=== PATIENT | male | born 1990 ===

== ENCOUNTER 2017-05-10 18:18 | Emergency (ER) | payer OTHER ==
[2017-05-10 18:26] VITALS: BMI 30.3
[2017-05-10 18:28] VITALS: TEMP 98.3
[2017-05-10 19:08] LABS: URINE BILIRUBIN NEGATIVE (NEGATIVE); URINE BLOOD NEGATIVE (NEGATIVE); URINE GLUCOSE (UA) NEGATIVE (NEGATIVE); URINE KETONE NEGATIVE (NEGATIVE); URINE LEUKOCYTE ESTERASE NEGATIVE Leu/uL (NEGATIVE); URINE PROTEIN TRACE mg/dL (<30 mg/dL)
[2017-05-10 19:16] LABS: URINE APPEARANCE CLEAR (CLEAR); URINE COLOR YELLOW (YELLOW)
[2017-05-10 19:22] LABS: URINE BACTERIA FEW (NEG); URINE RBC 0 - 2 /hpf (0-2); URINE WBC 0 - 2 /hpf (0-6)
--- NOTE | 2017-05-10 20:08 | ED PDOC ---
Arrival/HPI - General Chief Complaint: Flu-like Symptoms Time Seen by Provider: 05/10/17 18:29 Historian: Patient - History of Present Illness Narrative History of Present Illness (Text): 05/10/17 20:05 27yo male with no PMhx who present with complaint of lower back pain and diarrhea. Notes history of similar back pain in the past. states pain is with moment. He states his pain usually resolved with OTC analgesic but not today. He have not seen a Doctor for this pain. He also reports 2episodes of diarrhea today. Denies abdominal pain, nausea, vomiting, urinary symptoms, hematuria, hematochezia, hematemesis, tearing/ripping upper back pain, urinary/fecal incontinences, saddle anesthesia, any other complaint. Past Medical History - Provider Review Nursing Documentation Reviewed: Yes - Infectious Disease Hx of Infectious Diseases: None - Psychiatric Hx Substance Use: No - Anesthesia Hx Anesthesia: No Family/Social History - Physician Review Nursing Documentation Reviewed: Yes Family/Social History: Unknown Family HX Smoking Status: Never Smoked Hx Alcohol Use: No Hx Substance Use: No Allergies/Home Meds Allergies/Adverse Reactions: Allergies No Known Allergies Allergy (Verified 05/10/17 18:26) Review of Systems - Physician Review All systems were reviewed & negative as marked: Yes - Review of Systems Constitutional: Normal Eyes: Normal ENT: Normal Respiratory: Normal Cardiovascular: Normal Gastrointestinal: Diarrhea. absent: Abdominal Pain, Constipation, Nausea, Vomiting, Hematochezia, Hematemesis Genitourinary Male: Normal Musculoskeletal: Back Pain Skin: Normal Neurological: Normal Endocrine: Normal Hemo/Lymphatic: Normal Psychiatric: Normal Physical Exam Vital Signs Reviewed: Yes Vital Signs Temp Pulse Resp BP Pulse Ox 05/10/17 18:26 98.3 F 130 H 17 127/82 98 Temperature: Afebrile Blood Pressure: Normal Pulse: Tachycardic Respiratory Rate: Normal Appearance: Positive for: Well-Appearing, Non-Toxic, Comfortable Pain Distress: None Mental Status: Positive for: Alert and Oriented X 3 - Systems Exam Head: Present: Atraumatic, Normocephalic Pupils: Present: PERRL Extroacular Muscles: Present: EOMI Conjunctiva: Present: Normal Mouth: Present: Moist Mucous Membranes Neck: Present: Normal Range of Motion Respiratory/Chest: Present: Clear to Auscultation, Good Air Exchange. No: Respiratory Distress, Accessory Muscle Use Cardiovascular: Present: Regular Rate and Rhythm, Normal S1, S2. No: Murmurs Abdomen: Present: Normal Bowel Sounds. No: Tenderness, Distention, Peritoneal Signs, Rebound, Guarding, McBurney's Point Tender, Mass/Organomegaly Back: Present: Midline Tenderness. No: Paraspinal Tenderness, Pain with Leg Raise Upper Extremity: Present: Normal Inspection. No: Cyanosis, Edema Lower Extremity: Present: Normal Inspection. No: Edema Neurological: Present: GCS=15, CN II-XII Intact, Speech Normal Skin: Present: Warm, Dry, Normal Color. No: Rashes Psychiatric: Present: Alert, Oriented x 3, Normal Insight, Normal Concentration Medical Decision Making ED Course and Treatment: 05/10/17 20:15 PT presented for stated history. On re evaluation he notes that his pain improved in ED with medication. He as ambulatory with steady gait. LS no acute fracture noted He noted 2episodes of diarrhea in Ed. He will not be treated at this time, to avoid dumping syndrome. He will be DC with a rx of loperamide to take at home tomorrow if diarrhea persist. He had no episode of diarrhea here in ED. Referred to his PMD. - Lab Interpretations Lab Results: Lab Results 05/10/17 18:55: Urine Color Yellow, Urine Appearance Clear, Urine pH 7.0, Ur Specific [place] 1.010, Urine Protein Trace H, Urine Glucose (UA) Negative, Urine Ketones Negative, Urine Blood Negative, Urine Nitrate Negative, Urine Bilirubin Negative, Urine Urobilinogen 2.0 H, Ur Leukocyte Esterase Negative, Urine RBC 0 - 2, Urine WBC 0 - 2, Ur Epithelial Cells None, Urine Bacteria Few - RAD Interpretation Radiology Orders: 05/10/17 18:35 LS SPINE WITH OBL > 18 YRS OLD [RAD] Stat - Medication Orders Current Medication Orders: Discontinued Medications Cyclobenzaprine HCl (Flexeril) 10 mg PO STAT STA Stop: 05/10/17 18:37 Last Admin: 05/10/17 18:58 Dose: 10 mg Ketorolac Tromethamine (Toradol) 60 mg IM STAT STA Stop: 05/10/17 18:36 Last Admin: 05/10/17 18:57 Dose: 60 mg MAR Pain Assessment Document 05/10/17 18:57 MR (Rec: 05/10/17 18:58 MR [id number]) Pain Reassessment Is this a pain reassessment? No Sleep Is patient sleeping during reassessment? No Presence of Pain Presence of Pain Yes Pain Scale Used Pain Scale Used Numeric Location Left, Right or Bilateral Bilateral Upper or Lower Lower Pain Location Body Site Back Description Description Constant Intensity of Pain at present 8 Pain Behavior Restlessness IM Administration Charges Document 05/10/17 18:57 MR (Rec: 05/10/17 18:58 MR [id number]) Injection Site MAR Injection Site Left Gluteus Joselo Charges for Administration # of IM Administrations 1 Disposition/Present on Arrival - Present on Arrival Any Indicators Present on Arrival: No History of DVT/PE: No History of Uncontrolled Diabetes: No Urinary Catheter: No History of Decub. Ulcer: No History Surgical Site Infection Following: None - Disposition Have Diagnosis and Disposition been Completed?: Yes Diagnosis: Back pain, Diarrhea Disposition: HOME/ ROUTINE Disposition Time: 20:10 Patient Plan: Discharge Patient Problems: Current Active Problems Problem Status Onset Back pain Acute Diarrhea Acute Condition: STABLE Discharge Instructions (ExitCare): Acute Diarrhea (ED), Back Pain (ED), Back Exercises (ED) Additional Instructions: Apply warm compress to area, rest and take medication as directed follow up with your doctor Return to ED for any new or worsening symptoms Prescriptions: Cyclobenzaprine [Cyclobenzaprine HCl] 10 mg PO TID #9 tab Ibuprofen [Motrin Tab] 600 mg PO Q6 #20 tab Loperamide [Imodium] 2 mg PO DAILY #2 cap Referrals: Anais Sainz MD [Primary Care Provider] - Follow up with primary Forms: [employer] (Czech)
[2017-05-10 20:17] VITALS: BP 145/73; PULSE 107; RESP 18; O2SAT 100
--- NOTE | 2017-05-11 09:55 | RAD ---
PROCEDURE: Radiographs of the Lumbar Spine. HISTORY: back pain COMPARISON: No prior. FINDINGS: BONES: Straightening of the normal lumbar lordosis. No listhesis. No fracture. DISC SPACES: L5-S1 mild disc space narrowing. OTHER FINDINGS: Minimal bilateral L5-S1 facet early hypertrophic changes IMPRESSION: No fracture or subluxation. L5-S1 minimal disc space narrowing with minimal bilateral facet early hypertrophic arthrosis here Lumbar spine straightening -can be seen with patient positioning and/or spasm
== END 2017-05-10 20:30 | disposition home or self-care (01) ==
LOC: ED 18:18
DX: R19.7 Diarrhea, unspecified (principal); M54.5 Low back pain
CPT/HCPCS: 72110; 81001; 96372; 99282; J1885

== ENCOUNTER 2018-03-06 06:54 | Emergency (ER) | payer SELFPAY ==
[2018-03-06 06:55] VITALS: BMI 30.3
[2018-03-06 07:02] VITALS: PULSE 75; RESP 18; O2SAT 98
--- NOTE | 2018-03-06 08:15 | ED PDOC ---
Arrival/HPI - General Chief Complaint: Cough, Cold, Congestion Time Seen by Provider: 03/06/18 07:25 Historian: Patient - History of Present Illness Narrative History of Present Illness (Text): 03/06/18 07:29 28 year old male, with no significant past medical history, presents to the Emergency department complaining of non-productive cough, intermittent subjective fever and eye redness since 1 week. Patient informs associated sore throat with no improvement to symptoms since onset. Patient denies any sick contact at home or any recent travel. Patient denies any nausea, vomiting, diarrhea, abdominal pain, chest pain, shortness of breath, neck pain, back pain, headache, dizziness or any other complaints. PMD: None Time/Duration: 1 week Symptom Onset: Gradual Symptom Course: Unchanged Activities at Onset: Light Context: Home Past Medical History - Provider Review Nursing Documentation Reviewed: Yes - Infectious Disease Hx of Infectious Diseases: None - Psychiatric Hx Substance Use: No - Anesthesia Hx Anesthesia: No Family/Social History - Physician Review Nursing Documentation Reviewed: Yes Family/Social History: No Known Family HX Smoking Status: Never Smoked Hx Alcohol Use: No Hx Substance Use: No Allergies/Home Meds Allergies/Adverse Reactions: Allergies No Known Allergies Allergy (Verified 05/10/17 18:26) Review of Systems - Physician Review All systems were reviewed & negative as marked: Yes - Review of Systems Constitutional: Fevers Eyes: Other (Eye redness) ENT: Sore Throat Respiratory: Cough. absent: SOB Cardiovascular: absent: Chest Pain Gastrointestinal: absent: Abdominal Pain, Diarrhea, Nausea, Vomiting Musculoskeletal: absent: Back Pain, Neck Pain Neurological: absent: Headache, Dizziness Physical Exam Vital Signs Reviewed: Yes Vital Signs Temp Pulse Resp BP Pulse Ox 03/06/18 07:00 97.9 F 75 18 146/83 98 Temperature: Afebrile Blood Pressure: Normal Pulse: Regular Respiratory Rate: Normal Appearance: Positive for: Well-Appearing, Non-Toxic, Comfortable Pain Distress: None Mental Status: Positive for: Alert and Oriented X 3 - Systems Exam Head: Present: Atraumatic, Normocephalic Pupils: Present: PERRL Extroacular Muscles: Present: EOMI Conjunctiva: Present: Injected (mild) Mouth: Present: Moist Mucous Membranes Pharnyx: Present: ERYTHEMA. No: EXUDATE Neck: Present: Normal Range of Motion Respiratory/Chest: Present: Clear to Auscultation, Good Air Exchange. No: Respiratory Distress, Accessory Muscle Use Cardiovascular: Present: Regular Rate and Rhythm, Normal S1, S2. No: Murmurs Abdomen: No: Tenderness, Distention, Peritoneal Signs Back: Present: Normal Inspection Upper Extremity: Present: Normal Inspection. No: Cyanosis, Edema Lower Extremity: Present: Normal Inspection. No: Edema Neurological: Present: GCS=15, CN II-XII Intact, Speech Normal Skin: Present: Warm, Dry, Normal Color. No: Rashes Psychiatric: Present: Alert, Oriented x 3, Normal Insight, Normal Concentration Medical Decision Making ED Course and Treatment: 03/06/18 07:29 Impression:28 year old male presents to the Emergency department complaining of cough, sore throat and eye redness since 1 week. Differential Diagnosis included but are not limited to: Strep Throat vs. Influenza Plan: -- Chest X-ray -- Tylenol -- Rapid Strep -- Infleunza A B -- Reassess and disposition Prior Visits: Notes and results from previous visits were reviewed. Progress Notes: 03/06/18 08:15 Chest X-ray reviewed by me, shows no acute processes. Patient is currently resting in bed on his phone in no acute distress. 03/06/18 11:49 xr strep flu neg. symptoms x 1 week. vitals stable advise outpt fu - RAD Interpretation Radiology Orders: 03/06/18 07:29 CHEST TWO VIEWS (PA/LAT) [RAD] Stat - Medication Orders Current Medication Orders: Discontinued Medications Acetaminophen (Tylenol 325mg Tab) 975 mg PO STAT STA Stop: 03/06/18 07:30 Last Admin: 03/06/18 07:37 Dose: 975 mg [facility] [employer] [facility] Pain/Vitals Document 03/06/18 07:37 [facility] (Rec: 03/06/18 07:38 [facility]-[id number]) Pain Reassessment Is This A Pain ReAssessment? No - Scribe Statement The provider has reviewed the documentation as recorded by the Scribe Geoffrey Corral. All medical record entries made by the Scribe were at my direction and personally dictated by me. I have reviewed the chart and agree that the record accurately reflects my personal performance of the history, physical exam, medical decision making, and the department course for this patient. I have also personally directed, reviewed, and agree with the discharge instructions and disposition. Disposition/Present on Arrival - Present on Arrival Any Indicators Present on Arrival: No History of DVT/PE: No History of Uncontrolled Diabetes: No Urinary Catheter: No History of Decub. Ulcer: No History Surgical Site Infection Following: None - Disposition Have Diagnosis and Disposition been Completed?: Yes Diagnosis: Viral syndrome, [place] eye Disposition: HOME/ ROUTINE Disposition Time: 08:30 Condition: STABLE Discharge Instructions (ExitCare): Conjunctivitis ([place]) (DC), Viral Syndrome (DC) Additional Instructions: follow up in clinic. return to er with worsening symptoms or concerns. Prescriptions: Polymyxin/Trimethoprim Sulfate [Polytrim Ophth Soln] 1 drop BOTHEYES Q4 #1 x Referrals: [facility] [Outside] - Follow up with primary [facility] [Outside] - Follow up with primary [facility] [Outside] - Follow up with primary Forms: [facility] (Iranian), WORK NOTE
[2018-03-06 08:22] LABS: INFLUENZA A B NEGATIVE FOR FLU A/B (NEGATIVE)
[2018-03-06 08:43] VITALS: BP 135/72; TEMP 97
--- NOTE | 2018-03-06 09:08 | RAD ---
Date of service: 03/06/2018 HISTORY: cough COMPARISON: No prior. TECHNIQUE: Chest PA and lateral FINDINGS: LUNGS: No active pulmonary disease. PLEURA: No significant pleural effusion identified. No pneumothorax apparent. CARDIOVASCULAR: Normal. OSSEOUS STRUCTURES: No significant abnormalities. VISUALIZED UPPER ABDOMEN: Normal. OTHER FINDINGS: None. IMPRESSION: No active disease.
== END 2018-03-06 08:43 | disposition home or self-care (01) ==
LOC: ED 06:54
DX: B34.9 Viral infection, unspecified (principal); H10.029 Other mucopurulent conjunctivitis, unspecified eye